=== PATIENT | male | born 1950 | race Caucasian/White ===

== ENCOUNTER 2023-05-29 05:06 | Observation (INO) ==
--- NOTE | 2023-05-17 13:04 | History & Physical Report ---
Date of Service May 17, 2023 date of surgery: 05/29/23 Procedure: Right Total Knee Arthroplasty Surgeon: Agus Ring, DO Assessment & Plan (1) Osteoarthritis of right knee: Plan: Patient presented for preop evaluation prior to upcoming right total knee arthroplasty. Risk and benefits of the procedure were discussed, he would like to proceed with surgical intervention. Plan to place him on aspirin 81 mg twice a day for 1 month postop DVT prophylaxis, he is unable to take Celebrex therefore would like to place him on meloxicam postoperatively. Patient would like to be done as an outpatient, will discuss with anesthesia at [facility] as to whether he would be a candidate for outpatient joint program, will make arrangements for home health physical therapy. He otherwise has no other questions or concerns The risks and benefits have been discussed including, but not limited to, risk of infection, nerve injury, stiffness, loss of motion, failure to improve, etc. Reasonable outcomes and options of treatment were discussed. An explanation of appropriate alternatives to the procedure that may be advantageous were discussed and their risks and benefits, as well as the risks and benefits of not proceeding with treatment. I offered to answer any additional inquiries concerning the treatment involved. All the patient's questions were answered. The patient is agreeable, understanding of the treatment plan and alternatives, and wishes to proceed with the treatment plan. History of Present Illness Chief Complaint: Right knee pain Primary Care Provider: LYUDMILA PCP Genaro is a 72-year-old male who presented for preop evaluation prior to upcoming right total knee arthroplasty. He has a longstanding history of right knee pain which is gradually worsened and is now affecting his daily activities, he is undergone prior corticosteroid injection, viscosupplementation, oral anti- inflammatories and Tylenol with no improvement. At this point time is failed conservative measures and wishes to proceed with a right total knee replacement Allergies Allergy/AdvReac Type Severity Reaction Status Date / Time celecoxib [From Celebrex] Allergy Severe Swelling Verified 05/17/23 09:17 of Lip/Tongue/Throat hives iodine Allergy Severe Rash Verified 05/17/23 09:19 Sulfa (Sulfonamide Allergy Severe Hives Verified 05/17/23 09:18 Antibiotics) Penicillins Allergy Unknown Unknown Verified 05/17/23 09:18 amlodipine AdvReac Unknown swollen Verified 05/17/23 09:19 ankles Home Medications Medication Instructions Recorded Confirmed Type acetaminophen 500 mg tablet 500 mg PO QID PRN prn 05/17/23 05/17/23 History alprazolam 0.25 mg tablet 0.25 mg PO HS 05/17/23 05/17/23 History ascorbic acid (vitamin C) 1,000 mg 1 g PO QAM 05/17/23 05/17/23 History tablet (Vitamin C) aspirin 81 mg tablet,delayed 81 mg PO QAM 05/17/23 05/17/23 History release cholecalciferol (vitamin D3) 25 25 mcg PO QAM 05/17/23 05/17/23 History mcg (1,000 unit) tablet (Vitamin D3) famotidine 20 mg tablet 20 mg PO BID 05/17/23 05/17/23 History meloxicam 15 mg tablet 15 mg PO QAM 05/17/23 05/17/23 History metoprolol tartrate 25 mg tablet 25 mg PO BID 05/17/23 05/17/23 History olmesartan 20 mg tablet 20 mg PO HS 05/17/23 05/17/23 History rosuvastatin 10 mg tablet 10 mg PO HS 05/17/23 05/17/23 History spironolactone 25 mg tablet 25 mg PO QAM 05/17/23 05/17/23 History torsemide 10 mg tablet 10 mg PO QAM PRN prn 05/17/23 05/17/23 History zinc 50 mg tablet 50 mg PO QAM 05/17/23 05/17/23 History Past Med/Surg History Medical History GERD (gastroesophageal reflux disease) Cardiac dysrhythmia RBB, taking metoprolol, no issues recently, follows every two years with cardiology at [facility] Osteoarthritis Hx of malignant melanoma of skin 7 years ago, removed right forearm Hyperlipidemia Hypertension History of COVID-19 01/2023, resolved Surgical History History of abdominal surgery laparoscopic surgery, no resection but bowel was twisted, bowel obstruction, resolved Hx of cardiac catheterization [facility] prior to valve replacement, 2021 no stents Hx of aortic valve replacement 04/2021, [facility], 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, ECHO 07/2022 WNL and follow up with [facility] 07/2024 Social History Smoking Status: Never smoker Second Hand Exposure: No; Do You Dip or Chew Tobacco: No; Tobacco Cessation Education Requested by Patient: No Hx Alcohol Use: Yes Alcohol type: beer and hard liquor Hx Substance Use: No Preferred Language: [place] Required: No Beliefs That Will Affect Care: None Current Living Situation: Spouse Other Information That Helps Us Care for You: No Feels Safe at Home: Yes Safety Concerns: Feels Safe At This Time Assistive Devices: Cane and Glasses Review of Systems Review of Systems: All systems reviewed & are unremarkable except as noted in HPI & below Constitutional: no fever, no chills and no sweats Respiratory: no cough and no dyspnea Cardiovascular: no chest pain, no dyspnea and no orthopnea Gastrointestinal: no abdominal pain, no nausea and no vomiting Musculoskeletal: as per Subjective / HPI Physical Exam Constitutional: WD/WN, vitals as above no acute distress Respiratory: normal respiratory effort, lungs clear to auscultation no respiratory distress, no labored breathing and does not use accessory muscles Cardiovascular: RRR, no murmur, no edema Gastrointestinal (Abdomen): normal bowel sounds, soft, nontender, no hepatosplenomegaly Musculoskeletal: Knee: + knee abnormal to inspection (RIGHT KNEE), + effusion (+1 effusion), + limited ROM of knee (ROM 0/3/110), + knee ROM with crepitation, + joint line tenderness (medial joint line) and + Andrew's sign positive; no deformity, no skin erythema, no ecchymosis, no valgus laxity, no varus laxity, anterior drawer test negative, Jameel's sign negative and pivot shift test negative Results & Data Results & Data Diagnostic Findings Right Knee X-ray: Right knee series showing advanced degenerative changes to the right knee, narrowing of the medial compartment and patello-femoral joint with patellar spurring noted, findings showing joint space narrowing of the medial compartment and patello-femoral joint, osteophyte formation and subchondral sclerosis noted. overall varus alignment. no acute bony pathology noted.
--- NOTE | 2023-05-21 16:21 | Anesthesiology Consultation ---
Date of Service May 21, 2023 Assessment & Plan (1) Encounter for pre-operative examination: - Infectious disease screening: Per assessment on 05/17/23: No known infectious disease contacts or current infectious disease symptoms. No noted recent Covid positive test result. - Outpatient joint assessment: Pt currently scheduled for inpatient pathway. If surgeon requests review for outpatient joint pathway, patient is not recommended candidate for outpatient joint program from anesthesia standpoint based on available information. - [facility] Cardiology visit (07/31/22): "History of severe aortic valve regurgitation status post aortic valve replacement with a bioprosthesis (#27 Inspiris valve) in April 2021..Plan and recommendations: Medical therapy as discussed above. Followup in 2 years with EKG and echocardiogram." Chart Review Chart Review: Acceptable Risk for Surgery (pending evaluation DOS) and Patient NOT seen in Pre Admission Testing History Surgery Operation Date: 05/29/23 09:55 Proposed Procedures p Right Total Knee Arthroplasty - Agus Ring DO Height/Weight Height: 5 ft 11 in Weight: 108.862 kg Allergies Allergy/AdvReac Type Severity Reaction Status Date / Time celecoxib [From Celebrex] Allergy Severe Swelling Verified 05/17/23 09:17 of Lip/Tongue/Throat hives iodine Allergy Severe Rash Verified 05/17/23 09:19 Sulfa (Sulfonamide Allergy Severe Hives Verified 05/17/23 09:18 Antibiotics) Penicillins Allergy Unknown Unknown Verified 05/17/23 09:18 amlodipine AdvReac Unknown Ankle Verified 05/21/23 16:08 swelling Medications Home Medications Medication Instructions Recorded Confirmed Last Taken acetaminophen 500 mg tablet 500 mg PO QID PRN prn 05/17/23 05/17/23 Unknown alprazolam 0.25 mg tablet 0.25 mg PO HS 05/17/23 05/17/23 Unknown ascorbic acid (vitamin C) 1,000 mg 1 g PO QAM 05/17/23 05/17/23 Unknown tablet (Vitamin C) aspirin 81 mg tablet,delayed 81 mg PO QAM 05/17/23 05/17/23 Unknown release cholecalciferol (vitamin D3) 25 25 mcg PO QAM 05/17/23 05/17/23 Unknown mcg (1,000 unit) tablet (Vitamin D3) famotidine 20 mg tablet 20 mg PO BID 05/17/23 05/17/23 Unknown meloxicam 15 mg tablet 15 mg PO QAM 05/17/23 05/17/23 Unknown metoprolol tartrate 25 mg tablet 25 mg PO BID 05/17/23 05/17/23 Unknown olmesartan 20 mg tablet 20 mg PO HS 05/17/23 05/17/23 Unknown rosuvastatin 10 mg tablet 10 mg PO HS 05/17/23 05/17/23 Unknown spironolactone 25 mg tablet 25 mg PO QAM 05/17/23 05/17/23 Unknown torsemide 10 mg tablet 10 mg PO QAM PRN prn 05/17/23 05/17/23 Unknown zinc 50 mg tablet 50 mg PO QAM 05/17/23 05/17/23 Unknown Past Medical History Medical History (Updated 05/21/23 @ 16:12 by Kathia Castorena) Aortic valve disease s/p AVR 04/2021 Echo 07/2022 Cardiac dysrhythmia RBBB, taking metoprolol Follows every two years with cardiology at [facility] GERD (gastroesophageal reflux disease) History of COVID-19 01/2023, resolved Hx of malignant melanoma of skin 7 years ago, removed right forearm Hyperlipidemia Hypertension Osteoarthritis Past Surgical History Surgical History (Updated 05/21/23 @ 16:08 by Kathia Castorena) History of abdominal surgery laparoscopic surgery (no resection but bowel was twisted, bowel obstruction, "resolved") Hx of aortic valve replacement 04/2021 ([facility]) Hx of cardiac catheterization 2021 (prior to AVR)- no stents Social History Smoking Status: Never smoker Do You Dip or Chew Tobacco: No Hx Alcohol Use: Yes Alcohol type: beer and hard liquor alcohol intake frequency: a few times a week Hx Substance Use: No substance use type: does not use Testing Laboratory Results 04/20/23 WBC 6.36 H/H 11.9/36.7 PLATELETS 315 SODIUM 130 POTASSIUM 4.3 CHLORIDE 95 CO2 31.2 BUN 16.2 CREATININE 0.91 GLUCOSE 83 PT 12.7 INR 1.14 HGBA1C 5.5% Electrocardiogram Date: 04/20/23 Sinus rhythm with first-degree AV block at 55 bpm. Abnormal LAD. Cannot r/o septal infarct. RBBB. Chest X-Ray Date: 05/18/23 Changes of median sternotomy.Heart is stable in size. Calcific atherosclerosis of the Thoracic aorta. Cardiac valve replacement is noted. Impression: Stable chest without acute intrathoracic process. Echocardiogram Date: 07/31/22 LVEF 60%. "There is upper septal left ventricular hypertrophy.. EF 60 +/- 5% (visual est.).. Visualized aorta is borderline dilated with maximum dimension of 3.9 cm.. Inspiris prosthetic aortic valve.. There is no aortic valve regurgitation. The peak gradient is 25 mmHg, the mean gradient is 10 mmHg and the dimensionless valve index is 0.45." > Echo findings per received report + 07/31/22 cardiology office visit note* Cardiac Catheterization Date: 05/11/21 No angiographic evidence of obstructive coronary artery disease in right dominant system. Recommended treatment: Valve repair/replacement. Plan: Proceed with valve surgery without need for concomitant coronary artery bypass grafting. *Subsequent AVR performed*
[2023-05-29] MEDS: METOCLOPRAMIDE HCL 10 MG TABLET PO SCH (05:42)
[2023-05-29] MEDS: FAMOTIDINE 20 MG TAB PO SCH ×2 (05:42→21:57)
[2023-05-29] MEDS: GABAPENTIN 300 MG CAP PO SCH (05:42)
[2023-05-29] MEDS: ACETAMINOPHEN 500 MG TAB PO SCH ×2 (05:42→13:37)
[2023-05-29] MEDS: dexAMETHasone**PF** 10 MG/ML VIAL IV SCH (05:43)
[2023-05-29] MEDS: LR 500ML BOLUS, THEN 15ML/HR IV SCH (05:43)
[2023-05-29] MEDS: LR 60ML/HR IV SCH (05:43)
[2023-05-29 06:10] LABS: Partial Thromboplastin Ratio 1.1; Partial Thromboplastin Time 31 Seconds (21-31)
[2023-05-29] MEDS ORDERED: BUPIVACAINE 0.25% PF 30 ML VIAL ONE (06:13)
[2023-05-29] MEDS ORDERED: BUPIVACAINE 0.5 % 5 MG/1 ML PF 10ML VIAL ONE (06:13)
[2023-05-29] MEDS ORDERED: PROPOFOL IV EMULSION 10 MG/ML 20 ML VIAL IV ONE (06:34)
[2023-05-29] MEDS ORDERED: MIDAZOLAM HCL 1 MG/ML 2ML VIAL ONE ×2 (06:35→07:26)
[2023-05-29] MEDS ORDERED: PHENYLEPHRINE HCL 10 MG/ML VIAL ONE (06:43)
[2023-05-29] MEDS ORDERED: ePHEDrine sulfate 50 MG/ML AMP IV PRN (06:49)
[2023-05-29] MEDS ORDERED: fentaNYL citrate PF 100 MCG/2 ML VIAL IV PRN (06:49)
[2023-05-29] MEDS ORDERED: ONDANSETRON INJ 2 MG/ML 2 ML VIAL IV PRN ×2 (06:49→10:37)
[2023-05-29] MEDS ORDERED: ATROPINE SULFATE 0.1 MG/ML 10ML SYR IV PRN (06:49)
[2023-05-29] MEDS: TRANEXAMIC ACID 1,000 MG **IV Pre-op IV SCH (07:15)
--- NOTE | 2023-05-29 07:19 | History & Physical Bridge Note ---
Date of Service May 29, 2023 History & Physical Bridge Note I have examined the patient, reviewed the History & Physical and in the interval since the performance of the History & Physical I have noted the following changes of clinical significance: no changes noted
[2023-05-29] MEDS ORDERED: Nursing to Pharmacy Communication SCH (07:30)
[2023-05-29] MEDS ORDERED: LIDOCAINE 2% 2 ML VIAL/AMP(20MG/ML) INFIL ONE (07:38)
[2023-05-29] MEDS ORDERED: fentaNYL citrate PF 100 MCG/2 ML VIAL ONE (07:38)
[2023-05-29] MEDS ORDERED: HYDROmorphone INJ 2 MG/ML SYR/VIAL ONE (08:07)
[2023-05-29] MEDS: ceFAZolin 2000MG 2,000 MG/15 ML SYR IV SCH (08:25)
[2023-05-29] MEDS: ORTHO JOINT ANESTHETIC ONE (08:30)
[2023-05-29] MEDS: TRANEXAMIC ACID 1,000 MG **IV Intra-op IV SCH (08:43)
--- NOTE | 2023-05-29 08:55 | Operative Report ---
Post Operative Report Pre & Post Diagnosis Operation Date: 05/29/23 07:15 Pre-Op Diagnosis: Right Knee Osteoarthritis Post-Op Diagnosis: Right Knee Osteoarthritis I identified the patient and participated in the time-out.: Yes Procedure Operation Date: 05/29/23 07:15 Actual Procedures p Right Total Knee Arthroplasty(Right) utilizing [employer] journey 2 patient-matched total knee arthroplasty size 6 femur 6 tibia 6 poly 15 patella 32 shane- Agus Ring DO Surgeon Agus Ring DO Network Lead ANGELIKA Welch Estimated Blood Loss 5 Findings Consistent with Post-Op Diagnosis Patient presents with severe end-stage tricompartmental DJD of the right knee nonresponse to conservative management eburnated [id number] marginal osteophytes subchondral sclerosis subchondral cystic changes large effusion Specimens Bone and cartilage Drains Medium bore Hemovac Anesthesia Type MAC Spinal Regional Complications none Disposition Accompanied Patient To Recovery: No Disposition: Recovery Room Indications Patient presents with severe end-stage tricompartmental DJD failing attempted conservative management above intraoperative findings no time surgery patient failed attempted corticosteroid injection viscosupplementation relative rest activity modification and presents for total knee arthroplasty Description of Procedure After proper prepping and draping of the Right lower extremity anterior midline incision was made over the region of the extensor extensor mechanism after meti culous hemostasis was obtained and maintained in subcutaneous tissues a medial parapatellar incision was made The patella was subluxed lateralward the medial lateral gutter were cleaned from any hypertrophic synovitis and scar tissue of the distal femoral block was placed and the distal femoral osteotomy cut was made subsequently the chamfers anterior and posterior osteotomy cuts were made utilizing the 4-in-1 block the tibia was subsequently subluxed anteriorward medial and ateral meniscal remnants were excised in their entirety remnants of the anterior and posterior cruciate ligaments were excised in their entirety excellent exposure of the proximal tibia was obtained the tibial osteotomy guide was placed on the proximal tibial osteotomy cut was made once again the knee was irrigated with copious amounts of sterile saline solution the patella was subsequently everted lateralward thickened scar tissue around the patella was removed the patella was subsequently cut utilizing a freehand technique and was drilled prepared for final preparation and placement of patella socially flexion-extension gaps were checked and the equal and symmetric trials were placed to the appropriate femoral and tibial trials with poly-spacer being placed for equal flexion and extension gaps and full range of motion including extension to 0 and flexion to 140 the trial components after having been taken to recovery range of motion was subsequently removed meticulous hemostasis was obtained and maintained subsequently a knee block injection of joint cocktail including ropivacaine 0.5% 150 mg. Bupivacaine 0.5% epinephrine 1-200,030 mL's toradol 30 mg dexamethasone 4 mg ketamine 10 mg clonidine 100 micrograms normal saline solution 30 mg was infiltrated into the soft tissues of the posterior kn ee medial lateral gutters and periosteal synovium special attention was paid to protect neurovascular structures at all times subsequently trial components having been removed the knee was irrigated with sterile saline solution. debris was removed the proximal tibia was subsequently prepared and was made ready for the placement of the tibial component tibial component was also cemented and tamped into position the femoral component was subsequently placed and cemented in the position the patellar component was subsequently cemented in position because hemostasis once again obtained and maintained wound having been thoroughly irrigated with debridement and debridement lavage was performed as well as a medial parapatellar incision closed with #1 Vicryl in interrupted fashion subcutaneous was closed with #2 Vicryl skin was closed with skin clips. PA-C was necessary for prepping and drapping as well as wound closure of deep fascia Sub cutaneous tissue and skin and was necessary for the case. A sterile compressive dressing was placed patient was taken to recovery in stable condition of report dictated by Jhonathan I attest to the content of the Intraoperative Record and any orders documented therein. Any exceptions are noted below.Due to the complex nature of the procedure, the entire surgery was performed with the operational assistance of the ANGELIKA Welch. The administrative assistant office manager, under direct supervision, was involved in the actual performance of all aspects of the surgical procedure including hemostasis, tissue retraction and incision, instrument management, patient pos itioning, and wound closure. I attest to the content of the Intraoperative Record and any orders documented therein. Any exceptions are noted below.
--- NOTE | 2023-05-29 09:47 | XRay Report ---
XR knee RT 1 or 2V routine HISTORY: 72 years-old Male Surgical Post Op right knee arthroplasty COMPARISON: None TECHNIQUE: 2 views of the right knee FINDINGS: Total joint arthroplasty with patellar resurfacing. Surgical drainage catheter with postoperative sof t tissue swelling and deep tissue air. No acute fracture or unexpected foreign body. IMPRESSION: Total joint arthroplasty with expected postoperative changes. ACT 112: Negative or not required by law. The above report was generated using voice recognition software. It may contain grammatical, syntax o r spelling errors. Electronically signed by: Skyler Whitney M.D. 05/29/2023 9:46 AM
[2023-05-29] MEDS ORDERED: NALOXONE HCL 0.4 MG/1 ML VIAL/CARP IV PRN (10:37)
[2023-05-29] MEDS ORDERED: MAGNESIUM HYDROXIDE SUSP 30 ML UDC PO PRN (10:37)
[2023-05-29] MEDS ORDERED: METOCLOPRAMIDE HCL INJ 5 MG/ML 2 ML VIAL IV PRN (10:37)
[2023-05-29] MEDS ORDERED: diphenhydrAMINE Capsule 25 MG CAP PO PRN (10:37)
[2023-05-29] MEDS ORDERED: bisacodyL 10 MG SUPP PR PRN (10:37)
[2023-05-29] MEDS ORDERED: HYDROmorphone INJ 1 MG/ML SYRINGE IV PRN (10:37)
[2023-05-29] MEDS: SODIUM CHLORIDE 0.9% 1,000 ML IV SCH (11:13)
[2023-05-29] MEDS: oxyCODONE HCL IR 5 MG TAB (IMMEDIATE RELEASE) PO PRN (11:14)
[2023-05-29] MEDS: ROPIV 0.5% 246mg, Ketorolac 30mg, EPINEPHrine 0.5mg in NSS INFIL SCH (11:35)
[2023-05-29] MEDS: KETOROLAC TROMETHAMINE 15 MG/ML VIAL IV SCH (11:51)
--- NOTE | 2023-05-29 13:01 | Anesthesiology Progress Note ---
Date of Service May 29, 2023 Anesthesia Post Procedure Vital Signs Vital Signs: Temp Pulse Pulse Resp BP Pulse Ox O2 Del Method 05/29/23 12:37 64 18 128/81 98 Room Air 05/29/23 11:40 36.3 C L 61 16 130/78 100 Room Air 05/29/23 11:06 36.3 C L 58 L 16 140/85 96 Room Air 05/29/23 10:38 36.7 C 68 18 148/94 H 98 Room Air 05/29/23 10:05 37.0 C 60 15 151/79 H 98 Room Air 05/29/23 09:55 61 13 143/97 H 100 Oxymask 05/29/23 09:45 37.1 C 65 12 133/97 100 Room Air 05/29/23 09:35 37.1 C 60 15 160/106 H 100 Room Air 05/29/23 09:26 37.1 C 60 10 L 145/92 H 98 Oxymask 05/29/23 05:34 36.6 C 64 20 164/93 H 100 Room Air O2 Flow Rate 05/29/23 12:37 05/29/23 11:40 05/29/23 11:06 05/29/23 10:38 05/29/23 10:05 05/29/23 09:55 3 05/29/23 09:45 05/29/23 09:35 05/29/23 09:26 5 05/29/23 05:34 Transfer of Care Handoff Completed per policy Notes Mental Status: alert / awake / arousable and participated in evaluation Patient Amnestic to Procedure: Yes Nausea / Vomiting: adequately controlled Pain: adequately controlled Airway Patency, RR, SpO2: stable & adequate BP & HR: stable & adequate Hydration State: stable & adequate Anesthetic Complications: no major complications apparent and Pt Satisfied with anesthetic care
[2023-05-29] MEDS: CLINDAMYCIN/D5W 600 MG/50 ML BAG IV SCH (16:40)
[2023-05-29] MEDS: ALLERGY Noted to ORDERED Medication SCH (19:07)
[2023-05-29] MEDS: ALPRAZolam 0.25 MG TABLET PO SCH (21:55)
[2023-05-29] MEDS: LOSARTAN POTASSIUM 50 MG TAB PO SCH (21:56)
[2023-05-29] MEDS: SENNA 8.6 MG TAB PO SCH (21:57)
[2023-05-29] MEDS: METOPROLOL TARTRATE 25 MG TAB PO SCH (21:57)
[2023-05-29] MEDS: ROSUVASTATIN CALCIUM 10 MG TAB PO SCH (21:57)
[2023-05-29] MEDS: ASPIRIN 81 MG ECTAB PO SCH (21:58)
[2023-05-29] MEDS: DOCUSATE SODIUM 100 MG CAP PO SCH (21:58)
[2023-05-30 07:01] LABS: Hematocrit (blood only) 30.2 % (42.0-52.0); Hemoglobin 10.2 g/dl (14.0-18.0); Mean Corpuscular Hemoglobin 29.9 pg (25.0-34.0); Mean Corpuscular Hgb Conc 33.8 g/dL (32.0-36.0); Mean Corpuscular Volume 88.6 fL (80.0-100.0); Platelet Count 294 K/uL (130-400); RDW Coefficient of Variation 13.3 % (11.5-14.5); RDW Standard Deviation 42.9 fL (36.4-46.3); Red Blood Count 3.41 M/uL (4.70-6.10)
--- NOTE | 2023-05-30 07:02 | Orthopedic Progress Note ---
Date of Service May 30, 2023 Assessment & Plan (1) History of total right knee replacement: Plan: POD #1 s/p Right TKA pt/ot dvt proph with TANIA/SCD/ASA plan for d/c home with HHPT Admission and Anticipated Discharge Date Admission Date: May 29, 2023 Subjective POD #1 s/p Right TKA Review of Systems Constitutional: no fever, no chills and no sweats Respiratory: no cough and no dyspnea Cardiovascular: no chest pain and no dyspnea Gastrointestinal: no abdominal pain, no nausea and no vomiting Physical Exam Physical Exam: Vital Signs Temp 36.5 C 05/30/23 03:00 Pulse 59 L 05/30/23 03:00 Resp 17 05/30/23 03:00 BP 112/72 05/30/23 03:00 Pulse Ox 100 05/30/23 03:00 O2 Del Method Room Air 05/30/23 03:00 O2 Flow Rate 3 05/29/23 09:55 Intake & Output 05/29/23 05/30/23 05/30/23 18:59 06:59 18:59 Intake Total 1450 / 3060 1610 / 3060 Output Total 406 / 1282 876 / 1282 Balance 1044 / 1778 734 / 1778 Intake: IV 150 / 1200 1050 / 1200 Clindamycin/D5 w 600 mg In 50 ml 50 / 100 50 / 100 @ 100 mls/hr I V Q8H NORMA Rx#: [id number] Lactated Ringe r's 1,000 ml @ 15 0 / 0 mls/hr IV .Q24 H NORMA Rx#: [id number] Sodium Chlorid e 0.9% 1,000 ml @ 1000 / 1000 100 mls/hr IV .Q10H NORMA Rx#: [id number] Tranexamic Aci d / 0.7% NaCl 1, 100 / 100 000 mg In 100 ml @ 600 mls/hr IV TODAY@0600 NORMA Rx#:[id number] IV Perioperative 1300 / 1300 Oral 560 / 560 Output: Urine 400 / 950 550 / 950 Estimated Blood Loss 5 / 5 Drain Output 325 / 326 Right Knee Hem ovac #1 325 / 326 # Bowel Movement s Other: # Unmeasured Voi ds 2 Musculoskeletal: Right Leg: NVDI, calf SNT, negative giovany sign. DP palpable, able to wiggle toes/ankle movement without difficulty. dressing clean dry and intact. Results & Data Vital Signs (Past 12 Hours) Vital Signs Temp Pulse Resp BP Pulse Ox O2 Del Method 05/30/23 03:00 36.5 C 59 L 17 112/72 100 Room Air 05/29/23 23:31 36.8 C 68 17 125/81 100 Room Air 05/29/23 21:00 36.8 C 74 16 124/72 98 Room Air Diagnostic Findings Laboratory Results WBC 18.50 K/ul (4.8-10.8) H 05/30/23 06:00 RBC 3.41 M/uL (4.70-6.10) L 05/30/23 06:00 Hgb 10.2 g/dl (14.0-18.0) L 05/30/23 06:00 Hct 30.2 % (42.0-52.0) L 05/30/23 06:00 MCV 88.6 fL (80.0-100.0) 05/30/23 06:00 MCH 29.9 pg (25.0-34.0) 05/30/23 06:00 MCHC 33.8 g/dL (32.0-36.0) 05/30/23 06:00 RDW Std Deviation 42.9 fL (36.4-46.3) 05/30/23 06:00 RDW Coeff of Lidya 13.3 % (11.5-14.5) 05/30/23 06:00 Plt Count 294 K/uL (130-400) 05/30/23 06:00 MPV 10.0 fL (9.4-12.4) 05/30/23 06:00 APTT 31 Seconds (21-31) 05/29/23 05:25 PTT Ratio 1.1 05/29/23 05:25 Blood Type O Positive 05/29/23 05:25 Antibody Screen NEGATIVE 05/29/23 05:25 Impressions Knee X-Ray 05/29/23 09:26 XR knee RT 1 or 2V routine HISTORY: 72 years-old Male Surgical Post Op right knee arthroplasty COMPARISON: None TECHNIQUE: 2 views of the right knee FINDINGS: Total joint arthroplasty with patellar resurfacing. Surgical drainage catheter with postoperative soft tissue swelling and deep tissue air. No acute fracture or unexpected foreign body. IMPRESSION: Total joint arthroplasty with expected postoperative changes. ACT 112: Negative or not required by law. The above report was generated using voice recognition software. It may contain grammatical, syntax or spelling errors. Electronically signed by: Skyler Whitney M.D. 05/29/2023 9:46 AM
--- NOTE | 2023-05-30 07:03 | Discharge Summary ---
Date of Service date of discharge: May 30, 2023 date of admission: 05/29/23 Admission HPI Per Admitting Provider Genaro is a 72-year-old male who presented for preop evaluation prior to upcoming right total knee arthroplasty. He has a longstanding history of right knee pain which is gradually worsened and is now affecting his daily activities, he is undergone prior corticosteroid injection, viscosupplementation, oral anti- inflammatories and Tylenol with no improvement. At this point time is failed conservative measures and wishes to proceed with a right total knee replacement Principal Diagnosis Right knee arthritis Discharge Exam Laboratory Results WBC 18.50 K/ul (4.8-10.8) H 05/30/23 06:00 RBC 3.41 M/uL (4.70-6.10) L 05/30/23 06:00 Hgb 10.2 g/dl (14.0-18.0) L 05/30/23 06:00 Hct 30.2 % (42.0-52.0) L 05/30/23 06:00 MCV 88.6 fL (80.0-100.0) 05/30/23 06:00 MCH 29.9 pg (25.0-34.0) 05/30/23 06:00 MCHC 33.8 g/dL (32.0-36.0) 05/30/23 06:00 RDW Std Deviation 42.9 fL (36.4-46.3) 05/30/23 06:00 RDW Coeff of Lidya 13.3 % (11.5-14.5) 05/30/23 06:00 Plt Count 294 K/uL (130-400) 05/30/23 06:00 MPV 10.0 fL (9.4-12.4) 05/30/23 06:00 APTT 31 Seconds (21-31) 05/29/23 05:25 PTT Ratio 1.1 05/29/23 05:25 Blood Type O Positive 05/29/23 05:25 Antibody Screen NEGATIVE 05/29/23 05:25 Impressions Knee X-Ray 05/29/23 09:26 XR knee RT 1 or 2V routine HISTORY: 72 years-old Male Surgical Post Op right knee arthroplasty COMPARISON: None TECHNIQUE: 2 views of the right knee FINDINGS: Total joint arthroplasty with patellar resurfacing. Surgical drainage catheter with postoperative soft tissue swelling and deep tissue air. No acute fracture or unexpected foreign body. IMPRESSION: Total joint arthroplasty with expected postoperative changes. ACT 112: Negative or not required by law. The above report was generated using voice recognition software. It may contain grammatical, syntax or spelling errors. Electronically signed by: Skyler Whitney M.D. 05/29/2023 9:46 AM Musculoskeletal Right knee: NVDI, calf SNT, negative giovany sign. DP palpable, able to wiggle toes/ankle movement without difficulty. KAHLIL dressing clean dry and intact. expected post-operative bruising noted. Discharge Data Allergies Allergy/AdvReac Type Severity Reaction Status Date / Time celecoxib [From Celebrex] Allergy Severe Swelling Verified 05/29/23 05:38 of Lip/Tongue/Throat hives iodine Allergy Severe Rash Verified 05/29/23 05:38 Sulfa (Sulfonamide Allergy Severe Hives Verified 05/29/23 05:38 Antibiotics) Penicillins Allergy Unknown Unknown Verified 05/29/23 05:38 amlodipine AdvReac Unknown Ankle Verified 05/29/23 05:38 swelling Procedures Performed Operation Date: 05/29/23 07:15 Actual Procedures p Right Total Knee Arthroplasty(Right) - Agus Ring DO Ordered Studies 05/29/23 05:00 US - OR guided needle placemen Routine Hospital Course (1) History of total right knee replacement: POD #1 s/p Right TKA pt/ot dvt proph with TANIA/SCD/ASA plan for d/c home with HHPT Total Time Total Time Spent Total Time Spent (In Minutes): 20 Discharge Plan Discharge Items Patient Disposition: Home - Home Health Services Reason For Visit: Right Knee Osteoarthritis Discharge Diagnosis: Right total knee replacement Activity: Per Instructions section Lifting: Wait until after follow-up appointment Weightbearing Comment: WBAT with walker Non-emergency contact: Surgeon Call non-emergency contact if: you have any medication questions, your temperature is above 101, your wound has increased redness, your wound has increased drainage and your wound pain has increased Follow-up/Referrals: Gilbert Waddell, D.OThanh [Primary Care Provider] - Diet: Regular Addtl Attending Provider Instructions: ACTIVITY RECOMMENDATIONS: SELF CARE INSTRUCTIONS AFTER TOTAL KNEE REPLACEMENT A. You may need to continue a physical therapy program after discharge from the hospital. There are several options available to you. Your doctor will assist you in selecting the best one for you. 1. An out-patient facility 2 to 3 times a week for therapy or home therapy. 2. Continue working on all exercises taught to you in the hospital. Your goals should be to increase bending of your knee to 90 degrees and beyond and to fully straighten your knee. B. You may progress at your own pace from walking with a walker or crutches to a cane; then to no assistive devices. C. Make walking a part of your daily routine. Be up as much as comfortable with rest periods throughout the day. Rest with leg elevation is very important. Use the ice wrap frequently for the first 3-4 weeks. D. There are no restrictions on activities. You may ride in a car, shop, participate in forensic investigator and all social activities. E. Wear the long elastic stockings (TANIA hose) 20 hours a day for 2 weeks after surgery. They can be removed several times a day for laundering and for a bath. F. You may shower, no tub baths until cleared by your doctor. SPECIAL CARE INSTRUCTIONS: VERY IMPORTANT TO READ AND REVIEW A. There are a few signs you need to watch for after you are home. Call [facility] [place] if you notice any of the followin. Increased severe knee pain. Some pain is expected especially when you exercise. 2. Increased swelling in your leg or knee; pain or swelling of the calf muscle in either lower leg. 3. Any fluid drainage from the incision. 4. Shortness of breath or chest pain. B. Please call [facility] at if you have any concerns or questions about your operation or recovery. The doctor or his nurse will return your call promptly. C. You must take antibiotics before dental work, bladder, bowel or other surgery. Your doctor will provide you with a permanent care to carry describing this precaution. IMPORTANT: * REMEMBER TO TAKE ASPIRIN, 81 MG, TWICE DAILY FOR 4 WEEKS UNLESS OTHERWISE DIRECTED. THIS IS YOUR BLOOD THINNER. * HIGH RISK PATIENTS MAY BE PRESCRIBED A STRONGER BLOOD THINNER. THIS WILL BE PROVIDED AT DISCHARGE. * CALL IF INCREASED PAIN, REDNESS, DRAINAGE OR FEVER GREATER THAT 101. * WEAR TANIA HOSE 20 HOURS PER DAY FOR 2 WEEKS. DRESSING INSTRUCTIONS * KAHLIL Dressing- This is a large suction dressing covering your incision. This will help pull any excess drainage from the wound and allow your incision to heal properly. You may shower with this if you can keep the unit outside of the shower. If any bleeding or leakage is noted please call your doctor's office. This will remain on your incision for 7 days and then should be removed. This can be done yourself or by the home nursing staff if applicable. The entire unit is disposable once removed. Once removed, keep incision clean and dry. If redness or drainage is noted, please call your surgeon. ONCE KAHLIL IS REMOVED, FOLLOW THESE INSTRUCTIONS: DERMABOND Prineo- This is a mesh tape dressing that is covered with glue. It should remain in place until the incision is properly healed, usually 10-14 days. This dressing is designed to naturally slough off. You may trim the excess mesh tape as it peels off. Incision may be briefly wet in a shower. Dry immediately by blotting with a clean, dry towel. Do not bath or swim until instructed by your doctor. Do not scratch, rub, or pick at the dressing. Do not apply any topical ointments or lotions until dressing is completely removed and/or instructed by your doctor. There may be a small piece of suture material at one end of your incision. Do not pull or trim this. If it is bothersome or catching on clothing, you may cover it with a band-aid. IF INCISION IS LEAKING THROUGH DRESSING, CALL THE OFFICE . FOLLOW UP VISIT: If appointment is not already scheduled: Please call [facility] [place] to make a follow-up appointment for 2 weeks after your surgery at . Stand-Alone Forms: My [facility] Medications and DC Order Prescriptions: New clindamycin HCl 300 mg capsule 300 mg PO TID 7 Days Qty: 21 0RF aspirin 81 mg tablet,delayed release (DR/EC) 81 mg PO BID 30 Days Qty: 60 0RF acetaminophen 500 mg tablet 1,000 mg PO Q8 21 Days Qty: 126 0RF docusate sodium 100 mg Capsule 100 mg PO BID Qty: 20 0RF oxycodone 5 mg tablet 5 - 10 mg PO Q6H PRN (Reason: pain) Qty: 30 0RF Rx Instructions: ongoing therapy, supervising dr lucretia ring. max 6 tabs in 24 hours. date of surgery 05/29/23 Continued meloxicam 15 mg Tablet 15 mg PO QAM torsemide 10 mg Tablet 10 mg PO QAM PRN (Reason: prn) spironolactone 25 mg Tablet 25 mg PO QAM alprazolam 0.25 mg Tablet 0.25 mg PO HS famotidine 20 mg Tablet 20 mg PO BID olmesartan 20 mg Tablet 20 mg PO HS rosuvastatin 10 mg Tablet 10 mg PO HS metoprolol tartrate 25 mg Tablet 25 mg PO BID ascorbic acid (vitamin C) [Vitamin C] 1,000 mg Tablet 1 g PO QAM zinc 50 mg Tablet 50 mg PO QAM cholecalciferol (vitamin D3) [Vitamin D3] 25 mcg (1,000 unit) Tablet 25 mcg PO QAM Discontinued aspirin [Aspir-81] 81 mg Tablet,Delayed Release (Dr/Ec) 81 mg PO QAM acetaminophen 500 mg Tablet 500 mg PO QID PRN (Reason: prn) Admission Data Admit Date/Time: 05/29/23 09:26 Attending Provider: Agus Ring Admit Provider: Agus Ring Primary Care Provider: Gilbert Waddell
[2023-05-30 07:22] LABS: BUN Creatinine Ratio 26.4 (10-20); Calcium 8.5 mg/dl (8.6-10.3); Creatinine Clr Calc Pharmacy 75.6 ml/min; Est GFR (African American) 76.2 ml/min; Est GFR (Non-African American) 65.8 ml/min; Potassium 4.6 mmol/L (3.5-5.1)
[2023-05-30] MEDS: ASCORBIC ACID 500 MG TAB PO SCH (09:10)
[2023-05-30] MEDS: CHOLECALCIFEROL 25 MCG (1000 UNITS) TAB PO SCH (09:12)
[2023-05-30] MEDS: MELOXICAM 7.5 MG TAB PO SCH (09:13)
[2023-05-30] MEDS: MULTIVITAMIN TAB PO SCH (09:15)
[2023-05-30] MEDS: ZINC SULFATE 220 MG CAPSULE PO SCH (09:16)
== END 2023-05-30 12:10 | disposition home health service (06) ==
LOC: ASU 05:06 → 3E 05:06 → EDSEX 09:55